=== PATIENT | female | born 1990 | race Caucasian/White ===

== ENCOUNTER 2017-05-10 20:54 | Emergency (ER) | payer OTHER ==
[~2017-05-10] VITALS: Ht 162.6 cm; Wt 59.9 kg
[2017-05-10 21:35] VITALS: BP 138/83
[2017-05-10] MEDS ORDERED: IBUPROFEN 400 MG TABLET ONE (22:52)
[2017-05-10] MEDS ORDERED: IBUPROFEN 400 MG TABLET PO ONE (23:00)
== END 2017-05-10 22:55 | disposition home or self-care (01) ==
LOC: ER 21:04
DX: S40.022A Contusion of left upper arm, initial encounter (principal); X58.XXXA Exposure to other specified factors, initial encounter; Y93.89 Activity, other specified; Y92.89 Other specified places as the place of occurrence of the external cause; Y99.8 Other external cause status
CPT/HCPCS: A4606; Z7610